=== PATIENT | male | born 1950 | race American Indian/Alaskan Native ===

== ENCOUNTER 2020-08-08 15:59 | Emergency (ER) | payer MEDICARE, OTHER ==
[2020-08-08] MEDS ORDERED: Acetaminophen 325 MG Tab PO ONE ×2 (17:40→22:37)
[2020-08-08] MEDS ORDERED: Lactated Ringers 1,000 ML IV ONE (17:43)
[2020-08-08] MEDS ORDERED: Lactated Ringers 1,000 ML IV SCH (17:45)
--- NOTE | 2020-08-08 17:46 | EDM.PDOC ---
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 He has had difficulty in complications since his procedure he has been septic a total of 8 times. He has been doing well for the last 6 months however yesterday started developing chills and his temperature has been around 99. Complains of a headache but no other symptomology Right Abdominal Pain Score (Numeric/FACES): 2 - Related Data Allergies Allergy/AdvReac Type Severity Reaction Status Date / Time No Known Allergies Allergy Verified 08/08/20 16:27 Home Meds: Home Meds Acetaminophen [Tylenol] 650 mg PO ASDIRECTED PRN 08/08/20 [History] Aspirin 81 mg PO DAILY 08/08/20 [History] Calcium Carbonate/Vitamin D3 [Calcium 250+D] 250 mg PO DAILY 08/08/20 [History] Cholecalciferol (Vitamin D3) [Vitamin D3] 1,000 unit PO DAILY 08/08/20 [History] DULoxetine HCl [Cymbalta] 60 mg PO BID 08/08/20 [History] Ferrous Sulfate 325 mg PO BID 08/08/20 [History] Insulin Aspart [NovoLOG] 2 - 3 units SUBCNJ ASDIRECTED PRN 08/08/20 [History] Insuln Asp Prot/Insulin Aspart [NovoLOG Mix 70-30] 34 - 72 units SUBCNJ ASDIRECTED 08/08/20 [History] Multivitamin 1 tab PO DAILY 08/08/20 [History] Simvastatin 5 mg PO DAILY 08/08/20 [History] Sulfamethoxazole/Trimethoprim [Bactrim Ds Tablet] 1 tab PO BID 08/08/20 [History] Tamsulosin [Flomax] 0.4 mg PO DAILY 08/08/20 [History] ursodioL [Ursodiol] 250 mg PO BID 08/08/20 [History] Past Medical History Cardiovascular History: Reports: CAD, Other (See Below) Other Cardiovascular History: portal vein thrombosis Gastrointestinal History: Reports: GERD, GI Bleed Genitourinary History: Reports: Prostate Disorder Musculoskeletal History: Reports: Other (See Below) Other Musculoskeletal History: rotaTOR CUF injury Endocrine/Metabolic History: Reports: Diabetes, Type II Hematologic History: Reports: Anemia Oncologic (Cancer) History: Reports: Pancreatic - Infectious Disease History Infectious Disease History: Reports: C-Difficile - Past Surgical History GI Surgical History: Reports: Other (See Below) Other GI Surgeries/Procedures: whipple 07/2019. pancreatic fistula Social & Family History - Caffeine Use Caffeine Use: Reports: Coffee - Recreational Drug Use Recreational Drug Use: No ED ROS GENERAL - Review of Systems Review Of Systems: See Below Constitutional: Reports: Chills, Weakness HEENT: Reports: No Symptoms Respiratory: Reports: No Symptoms Cardiovascular: Reports: No Symptoms GI/Abdominal: Reports: No Symptoms : Reports: No Symptoms ED EXAM, GI/ABD - Physical Exam Exam: See Below Exam Limited By: No Limitations General Appearance: Alert, Lethargic Respiratory/Chest: No Respiratory Distress, Lungs Clear, Normal Breath Sounds, No Accessory Muscle Use, Chest Non-Tender Cardiovascular: Regular Rate, Rhythm, No Murmur GI/Abdominal Exam: Soft, Tender (Generalized) Extremities: No Pedal Edema Departure - Departure Disposition: DC/Tfer to Other Clinical Impression: Ascending cholangitis - Discharge Information Referrals: PCP,None [Primary Care Provider] - Forms: ED Department Discharge Care Plan Goals: I discussed the case with Dr. Bragg, hospitalist from [facility] who accepts the patient in transfer as a direct admission to the medical service for treatment of acute ascending cholangitis. We will arrange for transport of the patient with [facility]. Sepsis Event Note (ED) - Evaluation Sepsis Screening Result: No Definite Risk <Figueroa Vyas - Last Filed: 08/08/20 20:41> Course - Vital Signs Last Recorded V/S: Last Vital Signs Temp 37.2 C 08/08/20 16:39 Pulse 67 08/08/20 20:00 Resp 17 08/08/20 20:00 BP 138/67 08/08/20 20:00 Pulse Ox 97 08/08/20 20:00 - Orders/Labs/Meds Orders: Active Orders 24 hr Category Date Time Status Vital Signs [RC] Q1H Care 08/08/20 17:40 Active Chest 1V Frontal [CR] Stat Exams 08/08/20 17:40 Taken CULTURE BLOOD [BC] Urgent Lab 08/08/20 17:52 Received CULTURE BLOOD [BC] Urgent Lab 08/08/20 17:58 Received Iopamidol [Isovue-300 (61%)] Med 08/08/20 18:45 Active 100 ml IV . DIRECTED Lactated Ringers [Ringers, Lactated] 1,000 ml Med 08/08/20 17:45 Active IV ASDIRECTED Sodium Chloride 0.9% [Normal Saline] 80 ml Med 08/08/20 18:45 Active IV ASDIRECTED Sodium Chloride 0.9% [Saline Flush] Med 08/08/20 17:40 Active 10 ml FLUSH ASDIRECTED PRN Blood Culture x2 Reflex Set [OM.PC] Urgent Oth 08/08/20 17:40 Ordered Blood Culture x2 Reflex Set [OM.PC] Urgent Oth 08/08/20 17:40 Ordered Saline Lock Insert [OM.PC] Stat Oth 08/08/20 17:40 Ordered Severe Sepsis Onset Time [OM.PC] Stat Oth 08/08/20 17:40 Ordered Medication Orders Lactated Ringer's (Ringers, Lactated) 1,000 mls @ 999 mls/hr IV ASDIRECTED [facility] Last Admin: 08/08/20 19:20 Dose: 999 mls/hr Documented by: GRETA Sodium Chloride (Normal Saline) 80 mls @ 3 mls/sec IV ASDIRECTED [facility] Last Admin: 08/08/20 18:52 Dose: 3 mls/sec Documented by: KATIE Iopamidol (Isovue-300 (61%)) 100 ml IV . DIRECTED [facility] Last Admin: 08/08/20 18:52 Dose: 100 ml Documented by: KATIE Sodium Chloride (Saline Flush) 10 ml FLUSH ASDIRECTED PRN PRN Reason: Keep Vein Open Last Admin: 08/08/20 18:52 Dose: 10 ml Documented by: Admin: 08/08/20 17:58 Dose: 10 ml Documented by: GRETA Labs: Laboratory Tests 08/08/20 08/08/20 08/08/20 Range/Units 17:58 17:58 17:58 WBC 10.9 (4.5-11.0) K/uL RBC 3.87 L (4.30-5.90) M/uL Hgb 10.4 L (12.0-15.0) g/dL Hct 32.6 L (40.0-54.0) % MCV 84 (80-98) fL MCH 27 (27-31) pg MCHC 32 (32-36) % Plt Count 231 (150-400) K/uL Neut % (Auto) 76 H (36-66) % Lymph % (Auto) 15 L (24-44) % Cheyenne % (Auto) 8 H (2-6) % Eos % (Auto) 1 L (2-4) % Baso % (Auto) 0 (0-1) % PT 11.1 (9.5-12.0) sec INR 1.02 (0.80-1.20) Sodium 131 L (140-148) mmol/L Potassium 3.6 (3.6-5.2) mmol/L Chloride 98 L (100-108) mmol/L Carbon Dioxide 25 (21-32) mmol/L Anion Gap 11.6 (5.0-14.0) mmol/L BUN 12 (7-18) mg/dL Creatinine 1.0 (0.8-1.3) mg/dL Est Cr Clr Drug Dosing 60.65 mL/min Estimated GFR (MDRD) > 60 (>60) Glucose 196 H (74-106) mg/dL Lactic Acid (0.4-2.0) mmol/L Calcium 8.6 (8.5-10.1) mg/dL Total Bilirubin 1.0 (0.2-1.0) mg/dL AST 41 H (15-37) U/L ALT 39 (12-78) U/L Alkaline Phosphatase 516 H (46-116) U/L Troponin I 0.017 (0.000-0.056) ng/mL C-Reactive Protein 6.79 H (0.0-0.3) mg/dL Total Protein 7.3 (6.4-8.2) g/dL Albumin 2.6 L (3.4-5.0) g/dL Globulin 4.7 H (2.3-3.5) g/dL Albumin/Globulin Ratio 0.6 L (1.2-2.2) Lipase 36 L (73-393) U/L Procalcitonin ng/mL Urine Color (YELLOW) Urine Appearance (CLEAR) Urine pH (5.0-8.0) Ur Specific Jasper (1.008-1.030) Urine Protein (NEGATIVE) mg/dL Urine Glucose (UA) (NEGATIVE) mg/dL Urine Ketones (NEGATIVE) mg/dL Urine Occult Blood (NEGATIVE) Urine Nitrite (NEGATIVE) Urine Bilirubin (NEGATIVE) Urine Urobilinogen (0.2-1.0) EU/dL Ur Leukocyte Esterase (NEGATIVE) Urine RBC (0-5) Urine WBC (0-5) Ur Epithelial Cells Amorphous Sediment Urine Bacteria Urine Mucus Influenza Type A RNA (NEGATIVE) Influenza Type B RNA (NEGATIVE) RSV Rapid (NEGATIVE) SARS-CoV-2 RNA (TAYLOR) (NEGATIVE) 08/08/20 08/08/20 08/08/20 Range/Units 17:58 17:58 18:04 WBC (4.5-11.0) K/uL RBC (4.30-5.90) M/uL Hgb (12.0-15.0) g/dL Hct (40.0-54.0) % MCV (80-98) fL MCH (27-31) pg MCHC (32-36) % Plt Count (150-400) K/uL Neut % (Auto) (36-66) % Lymph % (Auto) (24-44) % [place] % (Auto) (2-6) % Eos % (Auto) (2-4) % Baso % (Auto) (0-1) % PT (9.5-12.0) sec INR (0.80-1.20) Sodium (140-148) mmol/L Potassium (3.6-5.2) mmol/L Chloride (100-108) mmol/L Carbon Dioxide (21-32) mmol/L Anion Gap (5.0-14.0) mmol/L BUN (7-18) mg/dL Creatinine (0.8-1.3) mg/dL Est Cr Clr Drug Dosing mL/min Estimated GFR (MDRD) (>60) Glucose (74-106) mg/dL Lactic Acid 0.8 (0.4-2.0) mmol/L Calcium (8.5-10.1) mg/dL Total Bilirubin (0.2-1.0) mg/dL AST (15-37) U/L ALT (12-78) U/L Alkaline Phosphatase (46-116) U/L Troponin I (0.000-0.056) ng/mL C-Reactive Protein (0.0-0.3) mg/dL Total Protein (6.4-8.2) g/dL Albumin (3.4-5.0) g/dL Globulin (2.3-3.5) g/dL Albumin/Globulin Ratio (1.2-2.2) Lipase (73-393) U/L Procalcitonin 0.65 ng/mL Urine Color (YELLOW) Urine Appearance (CLEAR) Urine pH (5.0-8.0) Ur Specific Jasper (1.008-1.030) Urine Protein (NEGATIVE) mg/dL Urine Glucose (UA) (NEGATIVE) mg/dL Urine Ketones (NEGATIVE) mg/dL Urine Occult Blood (NEGATIVE) Urine Nitrite (NEGATIVE) Urine Bilirubin (NEGATIVE) Urine Urobilinogen (0.2-1.0) EU/dL Ur Leukocyte Esterase (NEGATIVE) Urine RBC (0-5) Urine WBC (0-5) Ur Epithelial Cells Amorphous Sediment Urine Bacteria Urine Mucus Influenza Type A RNA Negative (NEGATIVE) Influenza Type B RNA Negative (NEGATIVE) RSV Rapid Negative (NEGATIVE) SARS-CoV-2 RNA (TAYLOR) Negative (NEGATIVE) 08/08/20 Range/Units 19:05 WBC (4.5-11.0) K/uL RBC (4.30-5.90) M/uL Hgb (12.0-15.0) g/dL Hct (40.0-54.0) % MCV (80-98) fL MCH (27-31) pg MCHC (32-36) % Plt Count (150-400) K/uL Neut % (Auto) (36-66) % Lymph % (Auto) (24-44) % [place] % (Auto) (2-6) % Eos % (Auto) (2-4) % Baso % (Auto) (0-1) % PT (9.5-12.0) sec INR (0.80-1.20) Sodium (140-148) mmol/L Potassium (3.6-5.2) mmol/L Chloride (100-108) mmol/L Carbon Dioxide (21-32) mmol/L Anion Gap (5.0-14.0) mmol/L BUN (7-18) mg/dL Creatinine (0.8-1.3) mg/dL Est Cr Clr Drug Dosing mL/min Estimated GFR (MDRD) (>60) Glucose (74-106) mg/dL Lactic Acid (0.4-2.0) mmol/L Calcium (8.5-10.1) mg/dL Total Bilirubin (0.2-1.0) mg/dL AST (15-37) U/L ALT (12-78) U/L Alkaline Phosphatase (46-116) U/L Troponin I (0.000-0.056) ng/mL C-Reactive Protein (0.0-0.3) mg/dL Total Protein (6.4-8.2) g/dL Albumin (3.4-5.0) g/dL Globulin (2.3-3.5) g/dL Albumin/Globulin Ratio (1.2-2.2) Lipase (73-393) U/L Procalcitonin ng/mL Urine Color Yellow (YELLOW) Urine Appearance Clear (CLEAR) Urine pH 6.5 (5.0-8.0) Ur Specific Jasper 1.025 (1.008-1.030) Urine Protein 30 H (NEGATIVE) mg/dL Urine Glucose (UA) 250 H (NEGATIVE) mg/dL Urine Ketones Negative (NEGATIVE) mg/dL Urine Occult Blood Negative (NEGATIVE) Urine Nitrite Negative (NEGATIVE) Urine Bilirubin Negative (NEGATIVE) Urine Urobilinogen 1.0 (0.2-1.0) EU/dL Ur Leukocyte Esterase Negative (NEGATIVE) Urine RBC 0-5 (0-5) Urine WBC Not seen (0-5) Ur Epithelial Cells Rare Amorphous Sediment Not seen Urine Bacteria Not seen Urine Mucus Not seen Influenza Type A RNA (NEGATIVE) Influenza Type B RNA (NEGATIVE) RSV Rapid (NEGATIVE) SARS-CoV-2 RNA (TAYLOR) (NEGATIVE) Meds: Medications Generic Name Dose Route Start Last Admin Trade Name Freq PRN Reason Stop Dose Admin Lactated Ringer's 1,000 mls @ 999 mls/hr 08/08/20 17:45 08/08/20 19:20 Ringers, Lactated IV 999 mls/hr ASDIRECTED EUN Administration Sodium Chloride 80 mls @ 3 mls/sec 08/08/20 18:45 08/08/20 18:52 Normal Saline IV 3 mls/sec ASDIRECTED EUN Administration Iopamidol 100 ml 08/08/20 18:45 08/08/20 18:52 Isovue-300 (61%) IV 100 ml . DIRECTED EUN Administration Sodium Chloride 10 ml 08/08/20 17:40 08/08/20 18:52 Saline Flush FLUSH 10 ml ASDIRECTED PRN Administration Keep Vein Open Discontinued Medications Generic Name Dose Route Start Last Admin Trade Name Freq PRN Reason Stop Dose Admin Acetaminophen 650 mg 08/08/20 17:40 08/08/20 17:56 Tylenol PO 08/08/20 17:41 650 mg NOW ONE Administration Lactated Ringer's 1,000 mls @ 999 mls/hr 08/08/20 17:43 08/08/20 17:54 Ringers, Lactated IV 08/08/20 18:43 999 mls/hr BOLUS ONE Administration Ertapenem 1 gm/ Sodium 100 mls @ 200 mls/hr 08/08/20 19:52 08/08/20 20:07 Chloride IV 08/08/20 20:21 200 mls/hr ONETIME ONE Administration - Radiology Interpretation Free Text/Narrative:: CT of the abdomen pelvis with contrast. Findings: Lower chest: Peripheral interstitial scarring/fibrosis and/or mild subsegmental atelectasis. Upper limits of normal cardiac size. A small pericardial effusion at the base. Several herniated upper abdominal collateral vessels adjacent to the distal esophagus. Borderline and shotty subcentimeter right retrocrural lymph nodes and a few subcentimeter centimeter inferior pericardial lymph nodes. Liver: The most superior hepatic lobe is not imaged. Central periportal edema. A 2.0 x 1.6 cm heterogeneous central hepatic low-density lesion on image 19 concerning for metastasis. A subcentimeter medial right hepatic low-density lesion on image 13. Spleen: Unremarkable. Pancreas: Post Whipple changes. Mild dilation of the pancreatic duct at the pancreatic body. Gallbladder and bile ducts: Cholecystectomy. Dilation of the extrahepatic bile duct up to 1.3 cm, demonstrating wall thickening and enhancement to the level of the hepaticojejunostomy. Small left intrahepatic pneumobilia. Adrenal glands: Unremarkable. Kidneys: No hydronephrosis. Right renal upper pole cyst. Bilateral apparent renal changes, nonspecific. Slight urothelial enhancement of the ureters. GI tract: Wall thickening of the jejunal segments at the hepaticojejunostomy with adjacent stranding and edema. Proximal gastric body wall thickening is at least partially related to under distention. A shallow wide ventricular hernia containing small bowel and colonic segments without associated mechanical expression. A normal appendix. No significant pericolonic changes. Stool throughout the colon. Vascular structures: Atherosclerotic changes. Small caliber upper abdominal collateral vessels. Lymph nodes: An enlarged partially necrotic periportal lymph node on image 27 measuring 2.6 x 1.6 cm, and an adjacent enlarged lymph node on image 29 measuring 2.7 x 1.3 cm. Prominent shotty subcentimeter upper abdominal retroper itoneal lymph nodes measuring up to 1.5 x 1.2 cm on image 44. Enovid soft tissue density anterior to the left renal vein apparently represents a portion of the hepaticojejunostomy. Borderline, apparently partially necrotic central mesenteric lymph nodes on image 48 and 52, and additional borderline shotty subcentimeter upper abdominal central mesenteric lymph nodes. Miscellaneous: Trace fluid in Morison's pouch. No free air. Partially imaged embedded device in the anterior low left chest wall. Pelvic organs. Borderline prostatic size, mildly protruding into the bladder space. Bones: Osteopenia. Small sclerotic foci at the iliac bones, nonspecific. Degenerative changes of the spine. - Re-Assessments/Exams Free Text/Narrative Re-Assessment/Exam: 08/08/20 20:00 labs and x-rays were reviewed. It appears the patient has developing acute ascending cholangitis. Antibiotics were initiated after blood cultures and labs were obtained. The patient received Invanz 1 g IV. The patient's would like the patient transferred to [facility] where the patient receives all of his care. Departure - Departure Time of Disposition: 20:20 Condition: Fair Sepsis Event Note (ED) - Focused Exam Vital Signs: Vital Signs Temp Pulse Resp BP Pulse Ox 08/08/20 20:00 67 17 138/67 97 08/08/20 19:49 60 147/62 H 97 08/08/20 19:00 79 18 157/69 H 98 08/08/20 18:36 61 158/75 H 08/08/20 17:58 64 160/80 H 08/08/20 17:02 64 151/73 H 97 08/08/20 16:39 37.2 C 66 16 155/68 H 97 08/08/20 16:35 37.2 C 66 16 155/68 H 97 - Problem List & Annotations (1) Ascending cholangitis SNOMED Code(s): 87895812 Code(s): K83.09 - OTHER CHOLANGITIS Status: Acute Priority: High Current Visit: Yes - Problem List Review Problem List Initiated/Reviewed/Updated: Yes - My Orders Last 24 Hours: My Active Orders 08/08/20 18:45 Iopamidol [Isovue-300 (61%)] 100 ml IV . DIRECTED Sodium Chloride 0.9% [Normal Saline] 80 ml IV ASDIRECTED - Assessment/Plan Last 24 Hours: My Active Orders 08/08/20 18:45 Iopamidol [Isovue-300 (61%)] 100 ml IV . DIRECTED Sodium Chloride 0.9% [Normal Saline] 80 ml IV ASDIRECTED
[2020-08-08] MEDS: Sodium Chloride 0.9% 10 ML Syringe FLUSH PRN ×2 (17:58→18:52)
[2020-08-08] MEDS ORDERED: Iopamidol 612 MG/ML 100 ML Bottle IV SCH (18:45)
[2020-08-08] MEDS ORDERED: Sodium Chloride 0.9% 80 ML IV SCH (18:45)
[2020-08-08 19:29] LABS: CORONAVIRUS COVID-19 NAA NEGATIVE (NEGATIVE)
[2020-08-08] MEDS ORDERED: Ertapenem 1 GM in Sodium Chloride 0.9% 100 ML IV ONE (19:52)
--- NOTE | 2020-08-08 19:55 | CRLCT ---
INDICATION: History Whipple procedure. Increasing pain. Chills TECHNIQUE: CT abdomen and pelvis acquired with IV contrast. 100 mL of Isovue-300 administered. COMPARISON: None available FINDINGS: Lower chest: Peripheral interstitial scarring/fibrosis and/or mild subsegmental atelectasis. Upper limits of normal cardiac size. A small pericardial effusion at the base. Several herniated upper abdominal collateral vessels adjacent to the distal esophagus. Borderline and shotty subcentimeter right retrocrural lymph nodes and few subcentimeter inferior pericardial lymph nodes. Liver: The most superior hepatic dome is not imaged. Central periportal edema. A 2.0 x 1.6 cm heterogeneous central hepatic low-density lesion on image 19, concerning for metastasis. A subcentimeter medial right hepatic low-density lesion on image 13. Spleen: Unremarkable. Pancreas: Post Whipple changes. Mild dilatation of the pancreatic duct in the pancreatic body. Gallbladder and bile ducts: Cholecystectomy. Dilatation of the extrahepatic bile duct up to 1.3 cm, demonstrating wall thickening and enhancement to the level of the hepaticojejunostomy. Small left intrahepatic pneumobilia. Adrenal glands: Unremarkable. Kidneys: No hydronephrosis. Right renal upper pole cysts. Bilateral perirenal changes, nonspecific. Slight urothelial enhancement in the ureters. GI tract: Wall thickening of the jejunal segments at the hepaticojejunostomy with adjacent stranding and edema. Proximal gastric body wall thickening is at least partially related to under distension. A shallow, wide ventral hernia containing small bowel and colonic segments without associated mechanical obstruction. A normal appendix. No significant pericolonic changes. Stool throughout the colon. Vascular structures: Atherosclerotic changes. Small-caliber upper abdominal collateral vessels. Lymph nodes: An enlarged partially necrotic periportal lymph node on image 27 measuring 2.6 x 1.6 cm, and an adjacent enlarged lymph node on image 29 measuring 2.7 x 1.3 cm. Prominent and shotty subcentimeter upper abdominal retroperitoneal lymph nodes measuring up to 1.5 x 1.2 cm on image 44. An ovoid soft tissue density anterior to the left renal vein apparently represents a portion of the hepaticojejunostomy. Borderline, apparently partially necrotic central mesenteric lymph nodes on images 48 and 52, and additional borderline and shotty subcentimeter upper abdominal central mesenteric lymph nodes. Miscellaneous: Trace fluid in Morison`s pouch. No free air. A partially imaged imbedded device in the anterior lower left chest wall. Pelvic Organs: Borderline prostatic size, mildly protruding into the bladder base. Bones: Osteopenia. Small sclerotic foci in the iliac bones, nonspecific. Degenerative changes in the spine. IMPRESSION: Post Whipple changes. A 2 cm hepatic low-density lesion, most concerning for a metastasis. An additional sub centimeter hepatic low-density lesion could represent a metastasis as well. Enlarged, borderline and shotty subcentimeter periportal, retroperitoneal, retrocrural, and central mesenteric lymph nodes, some appear partially necrotic, most concerning for metastatic lymphadenopathy. Prior studies are not available for comparison. Correlate with PET-CT evaluation. Dilatation of the extrahepatic duct, demonstrating wall thickening and enhancement, concerning for cholangitis. Cholangetic neoplasm is not excluded. Wall thickening of the jejunal segments at the hepaticojejunostomy with adjacent stranding, consistent with regional enteritis. A shallow wide ventral hernia containing bowel segments without associated mechanical obstruction. Other findings as above. Dictated by Sree Massey MD @ 08/08/2020 7:50:02 PM Please note that all CT scans at this facility use dose modulation, iterative reconstruction, and/or weight-based dosing when appropriate to reduce radiation dose to as low as reasonably achievable. Dictated by: Sree Massey MD @ 08/08/2020 19:53:37 (Electronically Signed)
--- NOTE | 2020-08-09 09:34 | CR ---
CHEST: Portable 08/08/2020 at 1856 CLINICAL HISTORY:Chills COMPARISON:None FINDINGS: There is generalized interstitial prominence in both lung osorio. The there is some perihilar haziness. Pulmonary vascularity and heart size are normal. No effusions are seen Impression: Generalized prominence of the lung markings is suspect for pneumonitis Upright two-view chest recommended when patient's condition allows.
== END 2020-08-08 22:46 | disposition other institution (70) ==
LOC: JP.ED 15:59
DX: K83.09 Other cholangitis (principal); E11.9 Type 2 diabetes mellitus without complications; I25.10 Atherosclerotic heart disease of native coronary artery without angina pectoris; Z20.822 Contact with and (suspected) exposure to COVID-19; Z79.82 Long term (current) use of aspirin; Z79.4 Long term (current) use of insulin; Z79.899 Other long term (current) drug therapy
CPT/HCPCS: 0241U; 36415; 71045; 74177; 80053; 81001; 83605; 83690; 84145; 84484; 85025; 85610; 86140; 87040; 96365; 99285; A9270; J1335; J7050; J7120; Q9967